=== PATIENT | female | born 1990 | race Caucasian/White ===

== ENCOUNTER → 2017-01-02 | Outpatient (CLI) | payer MEDICAID ==
[2017-01-02 16:37] LABS: Basophils % (A) 0 %; CH 27.7; CHCM 33.4; Eosinophils # (A) 0.1 k/uL (0-0.7); Eosinophils % (A) 1 %; HCT 38.9 % (34.0-46.0); HDW 2.46; HGB 13.2 gm/dL (11.4-16.0); Luc # (Auto) 0.17; Luc % (Auto) 2; Lymphocytes # (A) 2.3 k/uL (1.0-4.8); Lymphocytes % (A) 22 %; MCH 28.2 pg (25.0-35.0); MCHC 33.9 g/dL (31.0-37.0); MCV 83.2 fL (80.0-100.0); Mean Platelet Volume 7.4; Monocytes # (A) 0.6 k/uL (0-1.0); Monocytes % (A) 6 %; Neutrophils % (A) 69 %; RBC 4.68 m/uL (3.80-5.40); RDW 13.8 % (11.5-15.5); WBC 10.1 k/uL (3.8-10.6); WBC (Perox) 10.35
== END ==
LOC: LABMAIN 15:45
PROVIDERS: ATTEND Obstetrics & Gynecology
DX: Z01.812 Encounter for preprocedural laboratory examination (principal)
CPT/HCPCS: 36415; 85025

== ENCOUNTER 2017-01-08 06:25 | Day surgery (SDC) | payer MEDICAID ==
[2017-01-04 11:00] VITALS: BMI 48.2
--- NOTE | 2017-01-05 22:44 | HP ---
HISTORY OF PRESENT ILLNESS: Shakira is a 26-year-old 0, para 0 who was initially sent for referral regarding an abnormal Pap smear showing high-grade MARIMAR. She underwent colposcopically-directed biopsies which confirmed high-grade findings. 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 As a result, we discussed that further treatment is necessary and will need to proceed with cold knife conization of the cervix as well as ECC. PAST MEDICAL HISTORY: No significant history. PAST SURGICAL HISTORY: Significant for tonsillectomy as well as eye surgery in the past. OBSTETRICAL HISTORY: 0, para 0 with current method of contraception being Ortho Tri-Cyclen Lo. GYNECOLOGICAL HISTORY: Unremarkable with no history of any infections to include STDs. FAMILY HISTORY: Noncontributory. SOCIAL HISTORY: The patient is single and is a nonsmoker. She denies any significant alcohol, drugs, or any other social concerns. Current medications include: 1. Ortho Tri-Cyclen Lo. 2. Wellbutrin XL daily. 3. Flonase p.r.n. and 4. Several vitamin supplements. ALLERGIES: No known drug allergies. Review of systems is confined to history of present illness. PHYSICAL EXAMINATION: In general, this is a well-developed, well-nourished white female in no acute distress. HEENT demonstrates PERRLA, EOMI. Her oropharynx is clear. Her neck is supple and without adenopathy and the thyroid is normal to palpation. Her heart has a regular rhythm and rate without murmur. Her lungs are clear to auscultation bilaterally in all marquez. Her abdomen is nondistended, has normoactive bowel sounds, is soft, nontender and without any palpable masses, hepatosplenomegaly or hernias. Her extremities are without any cyanosis, clubbing or edema and are nontender to palpation bilaterally. Bimanual pelvic demonstrates her normal external genitalia and BUS with normal vaginal mucosa and cervix, which is well healed from the LEEP. There is no cervical motion tenderness. The uterus is 4 to 5 weeks in size, midplane, mobile, nontender and normal in shape. The adnexa are normal and nontender without mass bilaterally. 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 The risks and complications of the procedure have been thoroughly discussed, including the risks for bleeding, bleeding requiring transfusion, infections and injury to local structures which would be mostly confined to cervical damage, specifically for potential cervical incompetence in and potential for cervical stenosis. She has understood all of these risks and has agreed to proceed. We are scheduled for cold knife conization of the cervix on the morning of January 08, 2017.
[~2017-01-08 06:25] MED LIST: DEXAMETHASONE SOD PHOSPHATE 10 MG/ML 1 ML VIAL IV ONE; HYDROmorphone 1 MG/ML 1 ML SYRINGE IVP PRN; LACTATED RINGERS 1,000 ML IV SCH; LIDOCAINE 1% 20 ML VIAL (10MG/ML) FOR IV START INTRADERMA PRN; ONDANSETRON 4 MG/2 ML VIAL IVP ONE; SCOPOLAMINE 1.5MG/72HR PATCH TRANSDERM ONE; ceFAZolin 3 GM in SODIUM CHLORIDE 0.9% 100 ML IVPB ONE
[2017-01-08 06:55] VITALS: TEMP 97.4
[2017-01-08] MEDS ORDERED: KETOROLAC 30 MG/ML 1 ML VIAL ONE (07:36)
[2017-01-08] MEDS ORDERED: SUCCINYLCHOLINE CHLORIDE 100 MG/5 ML SYR IV ONE (07:36)
[2017-01-08] MEDS ORDERED: MIDAZOLAM 2 MG/2 ML VIAL ONE (07:36)
[2017-01-08] MEDS ORDERED: fentaNYL (PF) 50 MCG/ML 2 ML AMP ONE (07:36)
[2017-01-08] MEDS ORDERED: PROPOFOL 10 MG/ML 20 ML VIAL IV ONE (07:36)
[2017-01-08] MEDS ORDERED: LIDOCAINE 1% INJ 10MG/ML (20 ML MDV) ONE (07:36)
[2017-01-08] MEDS ORDERED: IODINE/POTASS IOD (LUGOLS) BTL TOPICAL ONE (07:56)
[2017-01-08] MEDS ORDERED: FERRIC SUBSULFATE (MONSELS) JAR TOPICAL ONE (07:56)
[2017-01-08] MEDS ORDERED: diphenhydrAMINE 50 MG/ML 1 ML VIAL IVP PRN (08:25)
[2017-01-08] MEDS ORDERED: ONDANSETRON 4 MG/2 ML VIAL IVP PRN (08:25)
[2017-01-08] MEDS ORDERED: Acetaminophen-Codeine 300-30mg TAB PO PRN ×2 (08:25)
[2017-01-08] MEDS ORDERED: METOCLOPRAMIDE 5 MG/ML 2 ML VIAL IVP PRN (08:25)
[2017-01-08] MEDS ORDERED: SIMETHICONE 80 MG CHEWABLE PO PRN (08:25)
[2017-01-08] MEDS ORDERED: IBUPROFEN 600 MG TAB PO PRN (08:25)
[2017-01-08] MEDS ORDERED: KETOROLAC 30 MG/ML 1 ML VIAL IVP PRN (08:25)
[2017-01-08] MEDS ORDERED: LACTATED RINGERS 1,000 ML IV SCH (08:30)
[2017-01-08 08:32] VITALS: RESP 16
--- NOTE | 2017-01-08 08:34 | P.OP ---
Date of Procedure: 01/08/17 Preoperative Diagnosis: #1. Endocervical carcinoma in situ/NATASHA-3 Postoperative Diagnosis: Same Procedure(s) Performed: Cervical cold knife cone Anesthesia: JUSTIN Surgeon: Roni Coughlin Estimated Blood Loss (ml): 80 IV fluids (ml): 400 Urine output (ml): 20 Pathology: other (Cervical cone) Condition: stable Disposition: PACU Operative Findings: Preoperatively, the patient had undergone a LEEP procedure at which time the pathologic findings were significant for the deep margin being positive for NATASHA- 3/carcinoma in situ. She was brought to the operating room where the cervix was painted with Lugol's iodine. There were is some nonstaining areas from approximately 6:00 to 9:00 on the cervix oh. The LEEP specimen had also shown ectocervical NATASHA-1. A Pavon was taken to approximately 1-1/2-2 cm in depth by approximately 1 cm across and both the vertical and transverse plane. This specimen was removed intact. Description of Procedure: The patient was prepped and draped in usual fashion after general endotracheal anesthesia was administered by the anesthesiologist. A weighted speculum was placed and the bladder drained of approximately 20 mL of clear rose urine. The anterior lip of the cervix was grasped with a single-tooth tenaculum and cervical stay sutures of 0 Vicryl were placed from 10:00 to 8:00 and 2:00 to 4: 00 at the cervicovaginal junction and firmly tied down. These were then utilized for traction on the cervix and the tenaculum was removed. The cervix was painted with Lugol strong iodine with some slightly nonstaining areas noted from 6:00 to 9:00 on the cervical clock face. A uterine sound was placed through the cervix to the fundus of the uterus. This was utilized as a guide to go down to a depth of the length of an 11 blade scalpel, approximately 2 cm. Once this was accomplished circumferentially, the sound was removed and the cone grasped with an Allis clamp anterior to posterior. Traction was applied and it was divided from its base approximately 1/2-2 cm in depth. The sound was then placed back through the cervix and it was noted to be intact circumferentially and the, at its minimal depth, at least 1 cm. The bed of the cone was then cauterized thoroughly. As there was still some ongoing bleeding, and Monsel's solution was applied and held with pressure. This decreased the bleeding to a significant degree. The anterior lip of the cervix was grasped with an Allis clamp and any further small points of bleeding were made hemostatic with the Bovie. One last application of Monsel solution was carried out at which time the bleeding was minimal. The stay sutures were left in place but cut short. Estimated blood loss for the case is approximately 80 mL. There are no complications. All sponge, instrument, and needle counts were correct. The patient tolerated the procedure well and proceeded to the recovery room in stable condition.
[2017-01-08 09:48] VITALS: BP 123/70; PULSE 78
== END 2017-01-08 10:14 | disposition home or self-care (01) ==
LOC: OR 06:25
PROVIDERS: ATTEND Obstetrics & Gynecology
DX: D06.0 Carcinoma in situ of endocervix (principal); E66.9 Obesity, unspecified; Z79.3 Long term (current) use of hormonal contraceptives; Z79.899 Other long term (current) drug therapy
CPT/HCPCS: 81025; 88307; 57520; J2250; J1100; J2765; J0690; J2405; J2001; J3010; J1885; J0330; J2704

== ENCOUNTER → 2018-03-08 | Outpatient (CLI) | payer MEDICAID ==
[2018-03-08 20:35] LABS: Basophils % (A) 0 %; Eosinophils # (A) 0.1 k/uL (0-0.7); Eosinophils % (A) 1 %; HCT 37.1 % (34.0-46.0); HGB 12.7 gm/dL (11.4-16.0); Lymphocytes # (A) 2.7 k/uL (1.0-4.8); Lymphocytes % (A) 25 %; MCH 27.8 pg (25.0-35.0); MCHC 34.2 g/dL (31.0-37.0); MCV 81.2 fL (80.0-100.0); Mean Platelet Volume 7.1; Monocytes # (A) 0.5 k/uL (0-1.0); Monocytes % (A) 5 %; Neutrophils # (A) 7.5 k/uL (1.3-7.7); Neutrophils % (A) 68 %; Platelet Count 304 k/uL (150-450); RBC 4.57 m/uL (3.80-5.40); RDW 14.3 % (11.5-15.5)
[2018-03-08 20:45] LABS: ALT 39 U/L (9-52); AST 19 U/L (14-36); Albumin 3.9 g/dL (3.5-5.0); Alkaline Phosphatase 81 U/L (38-126); Anion Gap 10 mmol/L; Blood Urea Nitrogen 9 mg/dL (7-17); Calcium 8.9 mg/dL (8.4-10.2); Carbon Dioxide 23 mmol/L (22-30); Chloride 103 mmol/L (98-107); Cholesterol 146 mg/dL (<200); Glucose 87 mg/dL (74-99); HDL Cholesterol 54 mg/dL (40-60); LDL Cholesterol,Calculated 69 mg/dL (0-99); Sodium 136 mmol/L (137-145); Total Bilirubin 0.2 mg/dL (0.2-1.3); Total Protein 6.5 g/dL (6.3-8.2); Triglycerides 116 mg/dL (<150)
[2018-03-08 21:01] LABS: T4, Free (Free Thyroxine) 1.01 ng/dL (0.78-2.19)
== END ==
LOC: LABMAIN 20:14
PROVIDERS: ATTEND Family Medicine
DX: Z00.00 Encounter for general adult medical examination without abnormal findings (principal)
CPT/HCPCS: 36415; 80053; 80061; 84439; 84443; 85025

== ENCOUNTER → 2019-05-23 | Outpatient (CLI) | payer MEDICAID ==
[2019-05-23 12:36] LABS: Basophils % (A) 0 %; Eosinophils # (A) 0.1 k/uL (0-0.7); Eosinophils % (A) 1 %; HCT 38.7 % (34.0-46.0); HGB 12.9 gm/dL (11.4-16.0); Lymphocytes # (A) 1.9 k/uL (1.0-4.8); Lymphocytes % (A) 21 %; MCH 28.7 pg (25.0-35.0); MCHC 33.2 g/dL (31.0-37.0); MCV 86.4 fL (80.0-100.0); Mean Platelet Volume 8.5; Monocytes # (A) 0.4 k/uL (0-1.0); Monocytes % (A) 5 %; Neutrophils # (A) 6.5 k/uL (1.3-7.7); Neutrophils % (A) 71 %; Platelet Count 284 k/uL (150-450); RBC 4.48 m/uL (3.80-5.40); RDW 13.9 % (11.5-15.5); WBC 9.1 k/uL (3.8-10.6)
[2019-05-23 16:42] LABS: African American GFR (CKD) 142.8 (60.0-200.0); Albumin 3.9 g/dL (3.80-4.90); Albumin/Globulin Ratio 2.05 (1.60-3.17); Anion Gap 10.4 mmol/L (4.00-12.00); BUN/Creat Ratio 18.33 Ratio (12.00-20.00); Carbon Dioxide 22.6 mmol/L (21.6-31.8); Globulin 1.9 g/dL (1.6-3.3); Potassium 4.4 mmol/L (3.5-5.5); Total Bilirubin 0.3 mg/dL (0.2-1.2); Total Protein 5.8 g/dL (6.2-8.2)
== END | disposition home or self-care (01) ==
LOC: LABWHC1 11:16
PROVIDERS: ATTEND Family Medicine
DX: J31.0 Chronic rhinitis (principal); R63.2 Polyphagia; Z71.3 Dietary counseling and surveillance; Z68.42 Body mass index [BMI] 45.0-49.9, adult
CPT/HCPCS: 36415; 80053; 84439; 84443; 85025

== ENCOUNTER → 2020-06-02 | Outpatient (CLI) | payer MEDICAID ==
[2020-06-02 16:17] LABS: Basophils # (A) 0.1 k/uL (0-0.2); Basophils % (A) 1 %; Eosinophils # (A) 0.1 k/uL (0-0.7); Eosinophils % (A) 1 %; HCT 41.6 % (34.0-46.0); HGB 13.4 gm/dL (11.4-16.0); Lymphocytes # (A) 2.1 k/uL (1.0-4.8); Lymphocytes % (A) 21 %; MCH 27.9 pg (25.0-35.0); MCHC 32.1 g/dL (31.0-37.0); MCV 86.8 fL (80.0-100.0); Mean Platelet Volume 7.9; Monocytes # (A) 0.6 k/uL (0-1.0); Monocytes % (A) 6 %; Neutrophils # (A) 7.1 k/uL (1.3-7.7); Neutrophils % (A) 71 %; Platelet Count 271 k/uL (150-450); RDW 13.2 % (11.5-15.5)
[2020-06-03 05:16] LABS: African American GFR (CKD) 141.8 (60.0-200.0); Albumin 4.7 g/dL (3.80-4.90); Albumin/Globulin Ratio 2.24 (1.60-3.17); Anion Gap 8.9 mmol/L (4.00-12.00); BUN/Creat Ratio 16.67 Ratio (12.00-20.00); Calcium 9.5 mg/dL (8.7-10.3); Carbon Dioxide 24.1 mmol/L (21.6-31.8); Chol/HDL Ratio 3.68; Globulin 2.1 g/dL (1.6-3.3); Non-African American GFR(CKD) 122.3 (60.0-200.0); Potassium 3.9 mmol/L (3.5-5.5); T4, Free (Free Thyroxine) 1.2 ng/dL (0.80-1.80); Total Bilirubin 0.5 mg/dL (0.3-1.2); Total Protein 6.8 g/dL (6.2-8.2)
== END | disposition home or self-care (01) ==
LOC: LABMAIN 14:48
PROVIDERS: ATTEND Family Medicine
DX: Z00.00 Encounter for general adult medical examination without abnormal findings (principal); Z71.3 Dietary counseling and surveillance; Z23 Encounter for immunization; F50.81 Binge eating disorder; L21.9 Seborrheic dermatitis, unspecified; B00.9 Herpesviral infection, unspecified
CPT/HCPCS: 36415; 80053; 80061; 84439; 84443; 85025

== ENCOUNTER → 2022-10-20 | Outpatient (CLI) | payer MEDICAID ==
--- NOTE | 2022-10-20 12:42 | MR ---
EXAMINATION TYPE: MR brain wo/w con DATE OF EXAM: 10/20/2022 COMPARISON: NONE HISTORY: pseudo tumor cerebra. Abnormal optical exam. TECHNIQUE: Multiplanar, multisequence images of the brain and brainstem is performed without and with IV contras t, utilizing 15 mL intravenous Gadavist . FINDINGS: Diffusion weighted images demonstrate no evidence of a recent infarct or other diffusion ab normality. The ventricular system and cisternal spaces are normal in size and appearance. The brain volume is age appropriate. Few small scattered foci of T2 hyperintensity seen throughout the white ma tter bilaterally. Approximately 5-10 scattered tiny lesions are seen. Lesions are nonspecific in appe arance and distribution. Midline structures demonstrate empty sella morphology. The craniocervical junction appears within no rmal limits. Post contrast images demonstrate no abnormal enhancement. The dural venous sinuses appe ar patent. Some prominence of CSF surrounding the optic nerves is noted bilaterally. Paranasal sinuse s are grossly clear. No suspicious intraparenchymal blood product on the T2 star weighted images. IMPRESSION: Prominence of subarachnoid space around the optic nerves and empty sella morphology woul d correlate with clinical suspicion for idiopathic intracranial hypertension. Other possible MRI find ings are not identified on this study to support this diagnosis. Mild to minimal nonspecific white ma tter changes. No abnormal enhancement is seen.
== END | disposition home or self-care (01) ==
LOC: RADMRIMAIN 10:33
PROVIDERS: ATTEND Ophthalmology
DX: G93.2 Benign intracranial hypertension (principal)
CPT/HCPCS: 70553; A9585

== ENCOUNTER → 2022-12-08 | Outpatient (CLI) | payer MEDICAID ==
[2022-12-08 15:44] LABS: ALT 29 U/L (8-44); AST 16 U/L (13-35); African American GFR (CKD) 138.8 (60.0-200.0); Albumin 4.1 g/dL (3.8-4.9); Albumin/Globulin Ratio 1.64 (1.60-3.17); Alkaline Phosphatase 104 U/L (41-126); BUN/Creat Ratio 17.67 Ratio (12.00-20.00); Blood Urea Nitrogen 10.6 mg/dL (9.0-27.0); Calcium 9.2 mg/dL (8.7-10.3); Carbon Dioxide 17.5 mmol/L (20.0-27.5); Chloride 111 mmol/L (96-109); Globulin 2.5 g/dL (1.6-3.3); Glucose 127 mg/dL (70-110); Magnesium 1.9 mg/dL (1.5-2.4); Non-African American GFR(CKD) 119.8 (60.0-200.0); Potassium 4.2 mmol/L (3.5-5.5); Sodium 140 mmol/L (135-145); Total Bilirubin <0.15 mg/dL (0.30-1.20); Total Protein 6.6 g/dL (6.2-8.2)
[2022-12-08 17:13] LABS: Basophils # (A) 0.03 X 10*3/uL (0.00-0.10); Basophils % (A) 0.4 %; Eosinophils # (A) 0.11 X 10*3/uL (0.04-0.35); Eosinophils % (A) 1.3 %; HCT 38.7 % (37.2-46.3); HGB 12.2 g/dL (12.0-15.0); Immature Grans, Automated 0.2 %; Lymphocytes # (A) 1.99 X 10*3/uL (0.90-5.00); Lymphocytes % (A) 23.3 %; MCH 27.4 pg (27.0-32.0); MCHC 31.5 g/dL (32.0-37.0); MCV 86.8 fL (80.0-97.0); Mean Platelet Volume 11.8 fL (9.5-12.2); Monocytes # (A) 0.61 X 10*3/uL (0.20-1.00); Monocytes % (A) 7.1 %; NRBC Per 100 WBC 0 /100 WBCS (0.0-0.0); Neutrophils # (A) 5.78 X 10*3/uL (1.80-7.70); Neutrophils % (A) 67.7 %; Platelet Count 308 X 10*3/uL (140-440); RBC 4.46 X 10*6/uL (4.10-5.20); RDW 14.2 % (11.5-14.5); WBC 8.54 X 10*3/uL (4.50-10.00)
== END | disposition home or self-care (01) ==
LOC: LABWHC1 08:20
PROVIDERS: ATTEND Family Medicine
DX: F41.1 Generalized anxiety disorder (principal); G58.9 Mononeuropathy, unspecified; F51.9 Sleep disorder not due to a substance or known physiological condition, unspecified; R63.2 Polyphagia
CPT/HCPCS: 36415; 80053; 83735; 84439; 84443; 85025

== ENCOUNTER → 2023-12-17 | Outpatient (CLI) | payer MEDICAID ==
[2023-12-17 11:31] LABS: Basophils % (A) 0 %; Eosinophils # (A) 0.1 k/uL (0-0.7); Eosinophils % (A) 1 %; HCT 45.8 % (34.0-46.0); HGB 14.8 gm/dL (11.4-16.0); Lymphocytes # (A) 1.8 k/uL (1.0-4.8); Lymphocytes % (A) 22 %; MCH 28.7 pg (25.0-35.0); MCHC 32.3 g/dL (31.0-37.0); MCV 88.9 fL (80.0-100.0); Mean Platelet Volume 9.8; Monocytes # (A) 0.4 k/uL (0-1.0); Monocytes % (A) 5 %; Neutrophils # (A) 5.7 k/uL (1.3-7.7); Neutrophils % (A) 70 %; Platelet Count 282 k/uL (150-450); RBC 5.15 m/uL (3.80-5.40); RDW 13.2 % (11.5-15.5); WBC 8.1 k/uL (3.8-10.6)
[2023-12-17 14:36] LABS: RBC Morphology Normal
[2023-12-17 19:14] LABS: ALT 21 U/L (8-44); AST 19 U/L (13-35); Albumin 4.4 g/dL (3.8-4.9); Albumin/Globulin Ratio 1.47 Ratio (1.60-3.17); Alkaline Phosphatase 92 U/L (41-126); Blood Urea Nitrogen 10.8 mg/dL (9.0-27.0); Calcium 9.5 mg/dL (8.7-10.3); Carbon Dioxide 16.5 mmol/L (21.6-31.8); Chloride 110 mmol/L (96-109); Glucose 99 mg/dL (70-110); Magnesium 2.2 mg/dL (1.5-2.4); Potassium 4.1 mmol/L (3.5-5.5); Sodium 140 mmol/L (135-145); T4, Free (Free Thyroxine) 1.22 ng/dL (0.80-1.80); Total Bilirubin 0.2 mg/dL (0.3-1.2); Total Protein 7.4 g/dL (6.2-8.2)
== END | disposition home or self-care (01) ==
LOC: LABWHC1 09:07
PROVIDERS: ATTEND Family Medicine
DX: R20.9 Unspecified disturbances of skin sensation (principal); R63.2 Polyphagia; Z71.3 Dietary counseling and surveillance
CPT/HCPCS: 36415; 80053; 82607; 82746; 83735; 84439; 84443; 85025